=== PATIENT | female | born 1990 | race Caucasian/White ===

== ENCOUNTER 2018-10-17 02:07 | Emergency (ER) | payer BC ==
[~2018-10-17] VITALS: Ht 162.6 cm; Wt 125.2 kg
[2018-10-17 02:15] VITALS: BP 130/82
[2018-10-17] MEDS ORDERED: METF500T16 PO (02:25)
[2018-10-17] MEDS ORDERED: OMEP20CA9 PO (02:25)
[2018-10-17] MEDS ORDERED: HYDROcodone/APAP 7.5/325MG 1 TAB TABLET PO ONE (02:30)
[2018-10-17] MEDS ORDERED: BACITRACIN ZINC TOPICAL OINT PACKET. TP ONE (03:00)
[2018-10-17] MEDS ORDERED: HYDR-3165 PO (03:06)
[2018-10-17] MEDS ORDERED: DICL50TA4 PO (03:06)
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
== END 2018-10-17 03:18 | disposition home or self-care (01) ==
LOC: ER 02:07
DX: S50.11XA Contusion of right forearm, initial encounter (principal); S20.01XA Contusion of right breast, initial encounter; E11.9 Type 2 diabetes mellitus without complications; Z88.7 Allergy status to serum and vaccine; V40.5XXA Car driver injured in collision with pedestrian or animal in traffic accident, initial encounter; Y93.I9 Activity, other involving external motion; Y92.89 Other specified places as the place of occurrence of the external cause; Y99.8 Other external cause status
CPT/HCPCS: 73080; 73090; 99284

== ENCOUNTER 2019-02-25 15:31 | Emergency (ER) | payer BC ==
[~2019-02-25] VITALS: Ht 162.6 cm; Wt 130.6 kg
[~2019-02-25 15:31] MED LIST: DICL50TA4 PO; HYDR-3165 PO; METF500T16 PO; OMEP20CA10 PO
[2019-02-25] MEDS ORDERED: IV NORMAL SALINE 1,000ML 1,000 ML IV ONE (16:00)
[2019-02-25] MEDS ORDERED: FAMOTIDINE 20 MG/2 ML VIAL IVP ONE (16:20)
[2019-02-25] MEDS ORDERED: ONDANSETRON PF 4 MG/2 ML VIAL. IVP ONE (16:20)
[2019-02-25 17:08] LABS: BASO # 0.1 x10^3/uL (0.0-0.2); BASO % 1 % (0-3); EOS # 0.2 x10^3/uL (0.0-0.7); EOS % 2 % (0-3); HEMATOCRIT 43.3 % (36.0-47.0); HEMOGLOBIN 13.7 g/dL (12.0-15.5); LYMPH # 3.4 x10^3/uL (1.0-4.8); LYMPH % 31 % (24-48); MEAN CORPUSCULAR HEMOGLOBIN 26 pg (25-35); MEAN CORPUSCULAR HGB CONC 32 g/dL (31-37); MEAN CORPUSCULAR VOLUME 81 fL (79-100); MONO # 0.6 x10^3/uL (0.0-1.1); MONO % 5 % (0-9); NEUT # 6.8 x10^3uL (1.8-7.7); NEUT % 62 % (31-73); PLATELET COUNT 368 x10^3/uL (140-400); RED BLOOD COUNT 5.33 x10^6/uL (3.50-5.40); RED CELL DISTRIBUTION WIDTH 14.4 % (11.5-14.5); WHITE BLOOD COUNT 11.1 x10^3/uL (4.0-11.0)
[2019-02-25 17:22] LABS: BACTERIA,URINE MOD /HPF (0-FEW); BILIRUBIN,URINE NEG (NEG); CLARITY,URINE CLOUDY; COLOR,URINE YELLOW; GLUCOSE,URINE NEG (NEG); NITRITE,URINE NEG (NEG); RBC,URINE 0 /HPF (0-2); SQUAMOUS EPITHELIAL CELL,UR MANY /LPF; UROBILINOGEN,URINE 0.2 mg/dL (0.2 mg/dL); WBC,URINE 20-40 /HPF (0-4)
[2019-02-25 17:28] LABS: ALBUMIN 3.8 g/dL (3.4-5.0); ALBUMIN/GLOBULIN RATIO 0.9 (1.0-1.7); CALCIUM 9.3 mg/dL (8.5-10.1); CREATININE 0.8 mg/dL (0.6-1.0); GFR 85.4; MAGNESIUM 2.1 mg/dL (1.8-2.4); POTASSIUM 4.4 mmol/L (3.5-5.1); TOTAL BILIRUBIN 0.4 mg/dL (0.2-1.0)
[2019-02-25] MEDS ORDERED: CEPH-264 PO (17:56)
[2019-02-25] MEDS ORDERED: ONDA4TAB12 PO (17:56)
--- NOTE | 2019-02-25 17:56 | PHYS DOC ---
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 Reports some lower abdominal discomfort with associated dysuria. Denies hematuria. Denies trauma. Denies . Review of Systems Review of Systems Constitutional: Denies fever or chills Eyes: Denies change in visual acuity, or eye pain HENT: Denies nasal congestion or sore throat Respiratory: Denies cough or shortness of breath Cardiovascular: Denies chest pain or palpitations GI: Reports suprapubic abdominal pain and nausea : Reports dysuria; denies hematuria Musculoskeletal: Denies back pain or joint pain Integument: Denies rash or skin lesions Neurologic: Denies headache, focal weakness or sensory changes Complete systems were reviewed and found to be within normal limits, except as documented in this note. Current Medications Current Medications Current Medications Medications (Trade) Dose Ordered Sig/Brenton Start Time Stop Time Status Last Admin Dose Admin Famotidine (Pepcid Vial) 20 mg 1X ONCE 02/25/19 16:20 02/25/19 16:21 DC 02/25/19 16:30 20 MG Ondansetron HCl (Zofran) 4 mg 1X ONCE 02/25/19 16:20 02/25/19 16:21 DC 02/25/19 16:30 4 MG Sodium Chloride 1,000 ml @ 1,000 mls/hr 1X ONCE 02/25/19 16:00 02/25/19 16:59 DC 02/25/19 16:29 1,000 MLS/HR Allergies Allergies Allergies Coded Allergies Type Severity Reaction Last Updated Verified hepatitis B virus vaccine Allergy Severe Hives 10/17/18 Yes Physical Exam Physical Exam Constitutional: Well developed, well nourished, no acute distress, non-toxic appearance HENT: Normocephalic, atraumatic, oropharynx moist Eyes: Conjunctiva normal, no discharge Neck: Normal range of motion, no tenderness, supple Cardiovascular: Heart rate normal, regular rhythm Lungs & Thorax: Bilateral breath sounds clear to auscultation, no wheezes Abdomen: Soft, suprapubic tenderness, no guarding/rebound tenderness/distention Skin: Warm, dry, no erythema Back: No tenderness, no CVA tenderness Extremities: No tenderness, ROM intact, no edema Neurologic: Alert and oriented X 3, no focal deficits noted Psychologic: Affect normal, judgement normal Current Patient Data Vital Signs Vital Signs Date Time Temp Pulse Resp B/P (MAP) Pulse Ox O2 Delivery O2 Flow Rate FiO2 02/25/19 16:10 98.6 80 16 100 Lab Results Laboratory Tests Test 02/25/19 16:10 02/25/19 16:18 02/25/19 16:25 Urine Collection Type Unknown Urine Color Yellow Urine Clarity Cloudy Urine pH 5.5 Urine Specific Rebuck 1.025 Urine Protein Neg (NEG-TRACE) Urine Glucose (UA) Neg mg/dL (NEG) Urine Ketones (Stick) Neg mg/dL (NEG) Urine Blood Neg (NEG) Urine Nitrite Neg (NEG) Urine Bilirubin Neg (NEG) Urine Urobilinogen Dipstick 0.2 mg/dL (0.2 mg/dL) Urine Leukocyte Esterase Mod (NEG) Urine RBC 0 /HPF (0-2) Urine WBC 20-40 /HPF (0-4) Urine Squamous Epithelial Cells Many /LPF Urine Bacteria Mod /HPF (0-FEW) Urine Mucus Marked /LPF POC Urine HCG, Qualitative hcg negative (Negative) White Blood Count 11.1 x10^3/uL (4.0-11.0) H Red Blood Count 5.33 x10^6/uL (3.50-5.40) Hemoglobin 13.7 g/dL (12.0-15.5) Hematocrit 43.3 % (36.0-47.0) Mean Corpuscular Volume 81 fL (79-100) Mean Corpuscular Hemoglobin 26 pg (25-35) Mean Corpuscular Hemoglobin Concent 32 g/dL (31-37) Red Cell Distribution Width 14.4 % (11.5-14.5) Platelet Count 368 x10^3/uL (140-400) Neutrophils (%) (Auto) 62 % (31-73) Lymphocytes (%) (Auto) 31 % (24-48) Monocytes (%) (Auto) 5 % (0-9) Eosinophils (%) (Auto) 2 % (0-3) Basophils (%) (Auto) 1 % (0-3) Neutrophils # (Auto) 6.8 x10^3uL (1.8-7.7) Lymphocytes # (Auto) 3.4 x10^3/uL (1.0-4.8) Monocytes # (Auto) 0.6 x10^3/uL (0.0-1.1) Eosinophils # (Auto) 0.2 x10^3/uL (0.0-0.7) Basophils # (Auto) 0.1 x10^3/uL (0.0-0.2) Sodium Level 138 mmol/L (136-145) Potassium Level 4.4 mmol/L (3.5-5.1) Chloride Level 103 mmol/L (98-107) Carbon Dioxide Level 25 mmol/L (21-32) Anion Gap 10 (6-14) Blood Urea Nitrogen 8 mg/dL (7-20) Creatinine 0.8 mg/dL (0.6-1.0) Estimated GFR (Cockcroft-Gault) 85.4 BUN/Creatinine Ratio 10 (6-20) Glucose Level 100 mg/dL (70-99) H Calcium Level 9.3 mg/dL (8.5-10.1) Magnesium Level 2.1 mg/dL (1.8-2.4) Total Bilirubin 0.4 mg/dL (0.2-1.0) Aspartate Amino Transferase (AST) 20 U/L (15-37) Alanine Aminotransferase (ALT) 32 U/L (14-59) Alkaline Phosphatase 79 U/L (46-116) Total Protein 8.0 g/dL (6.4-8.2) Albumin 3.8 g/dL (3.4-5.0) Albumin/Globulin Ratio 0.9 (1.0-1.7) L Lipase 74 U/L (73-393) EKG EKG [] Radiology/Procedures Radiology/Procedures [] Course & Med Decision Making Course & Med Decision Making Pertinent Lab studies reviewed. (See chart for details) Patient presents with suprapubic tenderness with report of N/V and dysuria. Labs obtained and posted to chart. UA with signs of infection. Empiric antibiotics given. Nausea addressed. IVF hydration given. Patient with interval improvement of symptoms. Patient stable for discharge with outpatient follow-up with PCP. Discussed findings and plan with patient, who acknowledges understanding and agreement. Dragon Disclaimer Dragon Disclaimer This electronic medical record was generated, in whole or in part, using a voice recognition dictation system. Departure Departure: Impression: Primary Impression: Nausea Additional Impression: Urinary tract infection Disposition: 01 HOME, SELF-CARE Condition: STABLE Referrals: PCP,NO (PCP) Patient Instructions: Nausea, Adult, [id number], Urinary Tract Infection, [id number] Scripts Cephalexin (KEFLEX) 500 Mg Capsule 1 CAP PO TID for UTI for 7 Days, #21 CAP 0 Refills Prov: CAN ALLEN DO 02/25/19 Ondansetron (ONDANSETRON ODT) 4 Mg Tab.rapdis 1 TAB PO PRN Q6-8HRS PRN for NAUSEA, #16 TAB Prov: CAN ALLEN DO 02/25/19 Problem Qualifiers Additional Impression: Urinary tract infection Urinary tract infection type: acute cystitis Hematuria presence: without hematuria Qualified Codes: N30.00 - Acute cystitis without hematuria CAN ALLEN DO Feb 25, 2019 17:56
[2019-02-25 18:11] VITALS: BP 131/87
== END 2019-02-25 18:12 | disposition home or self-care (01) ==
LOC: ER 15:31
DX: N30.00 Acute cystitis without hematuria (principal); R11.2 Nausea with vomiting, unspecified; E11.9 Type 2 diabetes mellitus without complications; Z88.7 Allergy status to serum and vaccine
CPT/HCPCS: 36415; 80053; 81001; 81025; 83690; 83735; 85025; 87086; 96361; 96374; 96375; 99285; J2405; J3490; 99284-25; J7030

== ENCOUNTER 2019-09-28 18:47 | Emergency (ER) | payer SELFPAY ==
[~2019-09-28] VITALS: Ht 162.6 cm; Wt 128.5 kg
[~2019-09-28 18:47] MED LIST changes: +CEPH-264 PO; -OMEP20CA10 PO; +OMEP20CA16 PO; +ONDA4TAB12 PO
--- NOTE | 2019-09-28 19:09 | PHYS DOC ---
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 She developed the symptoms yesterday. She has not taken any Tylenol or ibuprofen. Her temperature on arrival is 100.5 F. She has no known COVID-19 exposures, but is exposed to the public. She has type 2 diabetes but not taking medications. Review of Systems: Review of Systems: Constitutional: Fever Eyes: Denies change in visual acuity HENT: sore throat Respiratory: Cough without shortness of breath Cardiovascular: Denies chest pain or edema GI: Denies abdominal pain, nausea, vomiting, bloody stools or diarrhea : Denies dysuria Musculoskeletal: Denies back pain or joint pain Integument: Denies rash Neurologic: Denies headache, focal weakness or sensory changes Endocrine: Denies polyuria or polydipsia Lymphatic: Denies swollen glands Psychiatric: Denies depression or anxiety Heart Score: Risk Factors: Risk Factors: DM, Current or recent (<one month) smoker, HTN, HLP, family history of CAD, obesity. Risk Scores: Score 0 - 3: 2.5% MACE over next 6 weeks - Discharge Home Score 4 - 6: 20.3% MACE over next 6 weeks - Admit for Clinical Observation Score 7 - 10: 72.7% MACE over next 6 weeks - Early Invasive Strategies Allergies: Allergies: Allergies Coded Allergies Type Severity Reaction Last Updated Verified hepatitis B virus vaccine Allergy Severe Hives 10/17/18 Yes Physical Exam: PE: Constitutional: Well developed, morbidly obese, well nourished, no acute distress, non-toxic appearance. [] HENT: Normocephalic, atraumatic, bilateral external ears normal, oropharynx moist, no oral exudates, nose normal. [] Eyes: PERRLA, EOMI, conjunctiva normal, no discharge. [] Neck: Normal range of motion, no tenderness, supple, no stridor. [] Cardiovascular: Heart rate regular rhythm, no murmur [] Lungs & Thorax: Unreliable due to isolation precautions [] Abdomen: Bowel sounds normal, soft, no tenderness, no masses, no pulsatile masses. [] Skin: Warm, dry, no erythema, no rash. [] Back: No tenderness, no CVA tenderness. [] Extremities: No tenderness, no cyanosis, no clubbing, ROM intact, no edema. [] Neurologic: Alert and oriented X 3, normal motor function, normal sensory function, no focal deficits noted. [] Psychologic: Affect normal, judgement normal, mood normal. [] EKG: EKG: [] Radiology/Procedures: Radiology/Procedures: [] Impressions: EXAM: CHEST 1 VIEW History: Cough, shortness of breath COMPARISON: None available. TECHNIQUE: Single portable radiograph of the chest FINDINGS: The cardiac silhouette is unremarkable. The lungs are clear bilaterally. The costophrenic sulci are clear and well demarcated. The osseous structures and soft tissues are unremarkable. IMPRESSION: No radiographic evidence of an acute cardiopulmonary process. Electronically signed by: Phill Benitez MD (09/28/2019 8:55 PM) [id number] DICTATED AND SIGNED BY: PHILL BENITEZ MD DATE: 09/28/192054 CC: ROMAN ORR DO; PCP,NO ~ Course & Med Decision Making: Course & Med Decision Making Pertinent Labs and Imaging studies reviewed. (See chart for details) The patient's chest x-ray is unremarkable. Her labs are unremarkable. She does have a lactic acid of 2.0. She is not . Her urinalysis is negative for infection. The patient has risk factors for COVID-19. We have given her Tylenol for her fever. I believe that it is likely that this is COVID-19 based on her results and history. We have swabbed her for official testing. She does not meet criteria for admission. I will discharge her to home at this time. She is to stay isolated until she is symptom-free for at least 3 days and/or a negative test result. She is stable for discharge at this time. [] Dragon Disclaimer: Dragon Disclaimer: This electronic medical record was generated, in whole or in part, using a voice recognition dictation system. Departure Departure: Impression: Primary Impression: Suspected COVID-19 virus infection Disposition: HOME/RESIDENCE PRIOR TO ADM Condition: STABLE Referrals: PCP,TOLU (PCP) Patient Instructions: Viral Syndrome ROMAN ORR DO September 28, 2019 19:09
[2019-09-28] MEDS ORDERED: IV NORMAL SALINE 1,000ML 1,000 ML IV ONE (20:15)
[2019-09-28 20:18] LABS: BASO % 0 % (0-3); EOS # 0.1 x10^3/uL (0.0-0.7); EOS % 1 % (0-3); HEMATOCRIT 39.3 % (36.0-47.0); HEMOGLOBIN 12.9 g/dL (12.0-15.5); LYMPH # 1.3 x10^3/uL (1.0-4.8); LYMPH % 15 % (24-48); MEAN CORPUSCULAR HEMOGLOBIN 26 pg (25-35); MEAN CORPUSCULAR HGB CONC 33 g/dL (31-37); MEAN CORPUSCULAR VOLUME 79 fL (79-100); MONO # 0.6 x10^3/uL (0.0-1.1); MONO % 7 % (0-9); NEUT # 6.8 x10^3uL (1.8-7.7); NEUT % 77 % (31-73); PLATELET COUNT 336 x10^3/uL (140-400); RED BLOOD COUNT 4.97 x10^6/uL (3.50-5.40); RED CELL DISTRIBUTION WIDTH 14.1 % (11.5-14.5); WHITE BLOOD COUNT 8.8 x10^3/uL (4.0-11.0)
[2019-09-28 20:28] LABS: CREATININE 0.7 mg/dL (0.6-1.0); GFR 99.6
[2019-09-28 20:34] LABS: ALBUMIN 3.5 g/dL (3.4-5.0); ALBUMIN/GLOBULIN RATIO 0.8 (1.0-1.7); TOTAL BILIRUBIN 0.7 mg/dL (0.2-1.0); TOTAL PROTEIN 7.7 g/dL (6.4-8.2)
--- NOTE | 2019-09-28 20:58 | RAD ---
EXAM: CHEST 1 VIEW History: Cough, shortness of breath COMPARISON: None available. TECHNIQUE: Single portable radiograph of the chest FINDINGS: The cardiac silhouette is unremarkable. The lungs are clear bilaterally. The costophrenic sulci are clear and well demarcated. The osseous structures and soft tissues are unremarkable. IMPRESSION: No radiographic evidence of an acute cardiopulmonary process. Electronically signed by: Phill Benitez MD (09/28/2019 8:55 PM) [id number]
[2019-09-28] MEDS ORDERED: ACETAMINOPHEN 325 MG TABLET PO ONE (21:15)
[2019-09-28 21:21] LABS: BILIRUBIN,URINE NEG (NEG); CLARITY,URINE CLEAR; COLOR,URINE STRAW; GLUCOSE,URINE NEG (NEG)
[2019-09-28 21:22] LABS: NITRITE,URINE NEG (NEG); UROBILINOGEN,URINE 0.2 mg/dL (0.2 mg/dL)
[2019-09-28 21:25] VITALS: BP 133/75
[2019-09-28 21:27] LABS: BACTERIA,URINE FEW /HPF (0-FEW); RBC,URINE 0 /HPF (0-2); SQUAMOUS EPITHELIAL CELL,UR MOD /LPF; WBC,URINE 0 /HPF (0-4)
== END 2019-09-28 21:36 | disposition home or self-care (01) ==
LOC: ER 18:47
DX: Z03.818 Encounter for observation for suspected exposure to other biological agents ruled out (principal); E11.9 Type 2 diabetes mellitus without complications; Z88.7 Allergy status to serum and vaccine
CPT/HCPCS: 36415; 71045; 80053; 81001; 81025; 83605; 85025; 85379; 87040; 87070; 87635; 87880; 99284; J7030